=== PATIENT | male | born 1965 | race Caucasian/White ===

== ENCOUNTER 2018-09-23 15:01 | Outpatient (CLI) | payer OTHER ==
[2018-09-23 15:24] LABS: MEAN CORPUSCULAR HEMOGLOBIN 30.3 pg (28.0-34.0)
[2018-09-23 15:25] LABS: BASOPHILS % 0.4 (0.0-1.5); EOSINOPHILS % 0.9 % (0.0-6.8); MONOCYTES % 10.4 % (0.0-11.0)
[2018-09-23 15:35] LABS: eGFR (Non-African) > 60
--- NOTE | 2018-09-23 16:03 | Diagnostic Imaging Report ---
MINNIE PATEL [facility] [id number] [facility] [address] [place] [address]. [id number] Report Submission Date: Sep 23, 2018 3:36:19 PM [employer] Patient Study Name: SOHEILA HALL Date: Sep 23, 2018 3:06:43 PM [employer] Modality Type: DX Gender: M Description: ABDOMEN : 65 Institution: [facility] Physician: MINNIE PATEL Examination: Obstruction series History: STOMACH PAINS X 2 DAYS. NO PREVIOUS ABDOMINAL HX. (Hx) Findings: 2 views obtained of the abdomen. Minimally prominent air filled loops of small bowel. Air and stool throughout the large bowel. No suspicious calcification projecting over the renal fossa or the lower pelvic region. Osseous structures are appropriate for age. Impression: Minimally prominent loops of air filled small bowel - nonspecific bowel gas pattern. If symptoms persist, consider obtaining CT Abdomen/pelvis to further evaluate. No suspicious calcifications by plain film sensitivity. Electronically signed on Sep 23, 2018 3:36:19 PM [employer] by: Hitesh LOPEZ
== END 2018-09-23 15:03 ==
LOC: LAB 15:01
PROVIDERS: ATTEND Family Medicine
DX: R11.2 Nausea with vomiting, unspecified (principal)
CPT/HCPCS: 36415; 74018; 80053; 85025